=== PATIENT | female | born 1970 | race Caucasian/White ===

== ENCOUNTER 2017-01-04 17:47 | Emergency (ER) | payer MEDICAID ==
[~2017-01-04] VITALS: Ht 157.5 cm; Wt 68.0 kg
[~2017-01-04 17:47] MED LIST: ACET-1757 PO; ACID1TAB7 PO; ALBU1.25; ALBU1.25 NEB; ALBU8.5H5 INH; ALPR-475 PO; ALPR0.25 PO; AMOX1TAB12 PO; AMOX1TAB64 PO; AZIT250T PO; AZIT250T89 PO; AZIT500T77 PO; BENZ100C4 PO; BUDE90AE INH; CALC-361 PO; CALC-666 PO; CARI250T PO; CARI350T14 PO; CEFD300C37 PO; CHOL10003 PO; DOXY100T PO; DOXY50CA42 PO; FLUC200T PO; FLUT16SP NAS; FLUT1AER INH; FLUT1BLS INH; FLUT1DIS3; FLUT1DIS3 INH; FLUT1DIS5 IH; FLUT9.9S NAS; FURO-93 PO; GABA300C PO; GABA300C10 PO; GABA600T2 PO; GLIP5TAB10 PO; GUAI5LIQ3 PO; GUAI5SYR PO; GUAI600T22 PO; HUM100VI6 SC; HUMALOG 70/30; HYDR-3151 PO; HYDR-3240 PO; HYDR12.53 PO; INHA1SPA53; INSU100I11 SQ-INSULIN; INSU100I17 SQ; INSU100I18 SC; INSU100I18 SQ-INSULIN; INSU100I28 SQ-INSULIN; INSU100V12 INJ; INSU100V13 SQ; INSU100V8 SQ; IPRA12.9 INH; IPRA3AMP INH; IPRA3AMP NPPB; IPRA4AER INH; LEVO500T33 PO; LORA0.5T PO; LORA2TAB99 PO; MAGN400T26 PO; METF10002 PO; METF500T PO; METH500T97 PO; MONT10TA6 PO; MULT-208 PO; NPH,100V SQ-INSULIN; OXYC15TA PO; OXYC5TAB3 PO; PANT20TA2 PO; PANT40TA3 PO; PARO20TA55 PO; PARO40TA45 PO; PRED10TA PO; PRED10TA14; PRED1TAB PO; PRED20TA PO; PRED5TAB PO; PRED5TAB19 PO; Prednisone PO; RANI150T4 PO; REGULAR INSULIN; SIMV20TA PO; SULF1TAB3 PO; TEMA15CA6 PO; TIOT18CA INH; TRAM-28 PO; TRAZ100T15 PO; TRAZ50TA18 PO; [UNRECOGNIZED DRUG - OTHER]
[2017-01-04 19:16] LABS: BLOOD UREA NITROGEN 13 mg/dL (7-18)
[2017-01-04 19:33] LABS: PH, VENOUS 7.277 pH (7.320-7.420)
[2017-01-04 19:41] VITALS: BP 111/70
[2017-01-04] MEDS ORDERED: OXYcodone/APAP 5/325MG TABLET PO ONE (20:30)
== END 2017-01-04 21:45 | disposition home or self-care (01) ==
LOC: ED 21:39
DX: E11.649 Type 2 diabetes mellitus with hypoglycemia without coma (principal); Z79.4 Long term (current) use of insulin; J45.909 Unspecified asthma, uncomplicated; M54.5 Low back pain; G89.29 Other chronic pain; N28.9 Disorder of kidney and ureter, unspecified; Z88.1 Allergy status to other antibiotic agents; Z88.8 Allergy status to other drugs, medicaments and biological substances
CPT/HCPCS: 36415; 80048; 82010; 82040; 82803; 82962; 85025; 99284

== ENCOUNTER 2017-03-27 20:36 | Emergency (ER) | payer MEDICAID ==
[~2017-03-27] VITALS: Ht 157.5 cm; Wt 68.0 kg
[2017-03-27 20:39] VITALS: BP 125/83
[2017-03-27] MEDS ORDERED: SODIUM CHLORIDE 0.9% 1,000 ML IV ONE (21:16)
[2017-03-27] MEDS ORDERED: SODIUM CHLORIDE 0.9% 1,000ML IVBOLUS ONE (21:30)
[2017-03-27] MEDS ORDERED: INSULIN REGULAR 100 UNITS/ML, 3ML VIAL IVPush ONE (21:30)
[2017-03-27 21:34] LABS: DAU SCREEN DISCLAIMER
[2017-03-27 21:59] LABS: BLOOD UREA NITROGEN 11 mg/dL (7-18)
[2017-03-27 22:02] LABS: ASPARTATE AMINO TRANSFERASE 9 U/L (15-37)
[2017-03-27 22:03] LABS: ACETAMINOPHEN < 2 mcg/mL (10-30)
[2017-03-27] MEDS ORDERED: INSULIN REGULAR 100 UNITS/ML, 3ML VIAL ONE (22:17)
[2017-03-28] MEDS ORDERED: ONDANSETRON ODT 4 MG ONE (02:38)
[2017-03-28] MEDS ORDERED: ONDANSETRON ODT 4 MG PO ONE (03:00)
== END 2017-03-28 02:50 | disposition home or self-care (01) ==
LOC: ED 21:41
DX: Z00.8 Encounter for other general examination (principal); Z72.9 Problem related to lifestyle, unspecified; E11.65 Type 2 diabetes mellitus with hyperglycemia; D72.829 Elevated white blood cell count, unspecified; F41.9 Anxiety disorder, unspecified; Z91.14 Patient's other noncompliance with medication regimen; G89.29 Other chronic pain; M54.9 Dorsalgia, unspecified
CPT/HCPCS: 36415; 80053; 80307; 80329; 82962; 84443; 84703; 85025; 96361; 96374; 99285; J7030; Q0162; G0480